=== PATIENT | male | born 1995 | race Hispanic/Latino ===

== ENCOUNTER 2017-10-09 19:03 | Emergency (ER) | payer OTHER, SELFPAY ==
[2017-10-09 19:05] VITALS: BP 160/76; PULSE 77; PULSE 87; RESP 18; TEMP 36.2; O2SAT 96; O2SAT 97; BMI 32.4
--- NOTE | 2017-10-09 19:28 | ED.VISSUMM ---
- ER Visit Summary Date of Service: 10/09/17 Chief Complaint: Ear pain History of Present Illness: The patient is a 22 M who presents with bilateral ear pain. The patient was seen on Tuesday to urgent care with ear pain but his tympanic membranes appear normal. He has been battling some seasonal allergies. No fever. Noted clear rhinorrhea and slight cough. Physical Examination: Afebrile vital signs stable Gen: Well-nourished well-developed Head: Normocephalic atraumatic Eyes: Perrl EOMI ENT: Bilateral turbinate edema with clear rhinorrhea. Bilateral tympanic membrane erythema and bulging right greater than left. No evidence of perforation. Moist mucous membranes Neck: Supple no lymphadenopathy no JVD nontender CVS: Regular rate rhythm no murmurs normal S1-S2 Respiratory: No distress clear to auscultation bilaterally chest nontender Abdomen: Soft nontender nondistended normal bowel sounds no masses Back: Nontender Extremity: Nontender no edema Skin: Normal color no rash Neuro: alert orientated ?3 CN II-XII intact normal strength sensation reflexes gait cerebellar Psych: Normal affect normal mood Emergency Department Course and Treatment: Patient has a penicillin allergy. Patient was placed on Cefdinir. Return if worsening follow-up as needed Impression: 1. Bilateral otitis media This note was generated with [employer] dictation software. It may contain incorrect words, spelling, and punctuation that were not noted in review of the chart prior to signing ED Disposition - Plan for ED Patient: Disposition: Home or Assisted Living Chief Complaint: Ear Problem Instructions: ED Otitis Media Acute Adult Prescriptions: Cefdinir [Omnicef] 600 mg PO DAILY 120 Days #10 ml Referrals: Harvinder Elizabeth MD [Primary Care Provider] - 3-5 Days if not improving
[2017-10-09 19:37] VITALS: BP 122/86; PULSE 79; RESP 18; O2SAT 97
== END 2017-10-09 19:43 | disposition home or self-care (01) ==
PROVIDERS: Emergency Provider Emergency Medicine; Family Provider Pediatrics; PCP Pediatrics
DX: H66.93 Otitis media, unspecified, bilateral (principal); J45.909 Unspecified asthma, uncomplicated
CPT/HCPCS: 99283

== ENCOUNTER 2018-04-21 19:29 | Emergency (ER) | payer OTHER, SELFPAY ==
[2018-04-21 19:30] VITALS: BP 125/73; PULSE 80; RESP 16; TEMP 36.4; O2SAT 97; BMI 32.3
--- NOTE | 2018-04-21 19:33 | EKG12_ITS ---
Test Reason : CP Blood Pressure : / mmHG Vent. Rate : 070 BPM Atrial Rate : 070 BPM P-R Int : 138 ms QRS Dur : 096 ms QT Int : 382 ms P-R-T Axes : 025 016 009 degrees QTc Int : 412 ms Normal sinus rhythm with sinus arrhythmia Normal ECG Confirmed by SHAWNEE BULL, NETTE ([id number]), science editor JACE CASTILLO ([id number] on 04/24/2018 12:29:15 PM Referred By: Confirmed By:NETTE MALLORY MD
--- NOTE | 2018-04-21 19:35 | RAD_ITS ---
STUDY: X-RAY CHEST REASON FOR EXAM: Male, 22 years old. Chest pain TECHNIQUE: Single AP portable view of the chest. # of Images: 1 COMPARISON: None. FINDINGS: The lungs are clear and expanded. There is no demonstrated pleural abnormality. Normal size heart. Normal mediastinum and pattie. Normal visualized pulmonary arteries. Normal visualized aortic arch and descending thoracic aorta. Normal visualized thoracic spine. Normal visualized ribs, clavicles, and shoulders. There is no demonstrated abnormality of the visualized soft tissue structures of the upper abdomen. RAD/Chest 1 View (Portable) IMPRESSION: Normal x-ray examination of the chest. Electronically Signed: Ernesto Pena DO at 19:53 EDT Tel , Service support ,
--- NOTE | 2018-04-21 19:41 | ED.RN ---
NO OLD EKGS IN MUSE.
[2018-04-21 20:18] LABS: Absolute Lymphocyte Count 2.58 X10^3/ul (0.83-4.51); Absolute Neutrophil Count 3.1 X10^3/uL (2.0-7.7); Basophil# 0.06 X10^3/uL; Eosinophil# 0.13 X10^3/uL; Eosinophils% 2.1 % (0-5); Hematocrit 46.3 % (40-54); Hemoglobin 15.7 g/dl (13.0-16.5); Lymphocyte # 2.58 X10^3/ul (4.0); Lymphocyte % 41.4 % (19-41); Mean Corp Hgb Conc 33.9 g/gl (32-36); Mean Corpuscular Hgb 29.5 pg (27.0-32.0); Mean Corpuscular Volume 86.9 fL (80-94); Monocyte# 0.36 X10^3/uL; Monocyte% 5.8 % (0-10); Neutrophil # 3.07 X10^3/uL (2.7-7.7); Neutrophil % 49.2 % (47-70); Platelet Count 266 K/mm3 (150-450); RBC Distribution Width CV 13.3 % (11.6-14.6); Red Blood Count 5.33 M/mm3 (4.6-6.2); White Blood Count 6.2 K/mm3 (4.4-11.0)
[2018-04-21 20:19] LABS: POSITIVE COUNT NO; POSITIVE DIFFERENTIAL NO; POSITIVE MORPHOLOGY NO
[2018-04-21 20:42] LABS: Anion Gap 7 (5-15); BUN 13 mg/dL (7-18); BUN/Creat Ratio 10.9 RATIO (10-20); Calcium,Total 8.9 mg/dL (8.5-10.1); Chloride 104 mmol/L (98-107); Creatinine, Serum 1.19 mg/dL (0.70-1.30); EST Glomerular Filtration Rate 82 mL/min (>60); Est Glom Filt Rate - Afr Amer 100 mL/min (>60); Estimated Creatinine Clearance 108.68 ml/min; Glucose 80 mg/dL (74-106); Sodium Level 139 mmol/L (136-145)
[2018-04-21 21:03] VITALS: RESP 16
[2018-04-21 21:07] VITALS: O2SAT 98
[2018-04-21 21:58] VITALS: BP 112/77; PULSE 68; RESP 16; O2SAT 98
[2018-04-21 22:11] LABS: D-Dimer Quantitative (DVT/PE) < 0.27 FEU/ug/m (0.27-0.49)
[2018-04-21 23:00] VITALS: RESP 16
--- NOTE | 2018-04-21 23:20 | ED.DEP ---
ED Disposition - Plan for ED Patient: Chief Complaint: Chest Pain Instructions: ED Chest Pain Atypical Unkn Cause Referrals: Havrinder Elizabeth MD [Primary Care Provider] -
[2018-04-21] MEDS: Ibuprofen 600 MG Tablet PO (23:30)
[2018-04-21 23:33] VITALS: BP 116/86; PULSE 74; RESP 16; O2SAT 96
--- NOTE | 2018-04-21 23:33 | ED.RN ---
REVIEWED D/C INSTRUCTIONS, FOLLOW UP CARE, AND S/S THAT WOULD WARRANT A RETURN TO THE ED WITH PT. PT VERBALIZED AN UNDERSTANDING AND DENIES FURTHER QUESTIONS FOR THIS RN. PT SKIN P/W/D, RESP EVEN AND UNLABORED, PT A&O X 3, NO DISTRESS NOTED. PT AMBULATED OUT OF ED, GAIT STEADY.
--- NOTE | 2018-04-22 00:34 | ED.VISSUMM ---
- ER Visit Summary Date of Service: 04/22/18 Chief Complaint: Chest pain History of Present Illness: The patient is a 22 M presenting with chest pain which started around 5 PM. He states it is sharp pain in his mid chest. It is 5 out of 10. It is not worsened or relieved by anything. He denies nausea, vomiting, diaphoresis, shortness of breath, lightheadedness. He has a family history of early heart disease. He is not a smoker. No PE/DVT risk factors. Physical Examination: Vitals are stable. Patient is afebrile. Alert no acute distress. HEENT exam is unremarkable. Neck is supple. Lungs are clear and equal bilaterally. Mid chest tenderness to palpation with no crepitus Heart is regular rate and rhythm. Abdomen is soft nontender nondistended. Extremities are unremarkable. Skin is warm and dry. No focal neurologic deficit. Remainder of exam is unremarkable. Emergency Department Course and Treatment: EKG is sinus rate of 70. CBC chemistries unremarkable. Troponin is negative. D-dimer negative. Chest x-ray shows no acute process. Patient is resting comfortably on reevaluation. He was given Motrin. Advised to follow-up with his primary care physician. Advised return ED if worsening complaints. Disposition: Discharge home Impression: Chest wall pain This note was generated with [employer] dictation software. It may contain incorrect words, spelling, and punctuation that were not noted in review of the chart prior to signing ED Disposition - Plan for ED Patient: Disposition: Home or Assisted Living Chief Complaint: Chest Pain Instructions: ED Chest Pain Atypical Unkn Cause Referrals: Harvinder Elizabeth MD [Primary Care Provider] -
--- NOTE | 2018-04-22 00:44 | ED.DCSUM_ITS ---
- ER Visit Summary Date of Service: 04/22/18 Chief Complaint: Chest pain History of Present Illness: The patient is a 22 M presenting with chest pain which started around 5 PM. He states it is sharp pain in his mid chest. It is 5 out of 10. It is not worsened or relieved by anything. He denies nausea, v omiting, diaphoresis, shortness of breath, lightheadedness. He has a family history of early heart disease. He is not a smoker. No PE/DVT risk factors. Physical Examination: Vitals are stable. Patient is afebrile. Alert no acute distress. HEENT exam is unremarkable. Neck is supple. Lungs are clear and equal bilaterally. Mid chest tenderness to palpation with no crepitus Heart is regular rate and rhythm. Abdomen is soft nontender nondistended. Extremities are unremarkable. Skin is warm and dry. No focal neurologic deficit. Remainder of exam is unremarkable. Emergency Department Course and Treatment: EKG is sinus rate of 70. CBC chemistries unremarkable. Troponin is negative. D-dimer negative. Chest x-ray shows no acute process. Patient is resting comfortably on reevaluation. He was given Motrin. Advised to follow-up with his primary care physician. Advised return ED if worsening complaints. Disposition: Discharge home Impression: Chest wall pain This note was generated with [employer] dictation software. It may contain incorrect words, spelling, and punctuation that were not noted in review of the chart prior to signing ED Disposition - Plan for ED Patient: Disposition: Home or Assisted Living Chief Complaint: Chest Pain Instructions: ED Chest Pain Atypical Unkn Cause Referrals: Harvinder Elizabeth MD [Primary Care Provider] -
== END 2018-04-21 23:34 | disposition home or self-care (01) ==
PROVIDERS: Emergency Provider Emergency Medicine; Family Provider Pediatrics; PCP Pediatrics
DX: R07.89 Other chest pain (principal)
CPT/HCPCS: 71045; 80048; 84484; 85025; 85379; 93005; 99285

== ENCOUNTER 2018-09-23 22:43 | Emergency (ER) | payer OTHER, SELFPAY ==
[2018-09-23 22:44] VITALS: BP 123/64; PULSE 124; RESP 20; TEMP 37.6; O2SAT 98; BMI 32.7
--- NOTE | 2018-09-23 23:22 | ED.VIS.GEN ---
History of Present Illness Chief Complaint: Cough Informant: Patient, Family Onset: Yesterday Context: Sudden Onset Timing: Continuous Quality: Viral-like symptoms Location: Respiratory Current Severity: Mild Maximum Severity: Moderate Worsened by: Coughing Relieved by: Nothing Associated Symptoms: Runny nose, slight production clear, wheezing Narrative: Patient is a 23-year-old male with asthma. He presents with viral-like symptoms started yesterday. He reports rhinorrhea, congestion and cough with minimal production of clear sputum. He has had shortness of breath. No documented fever. No headache. No ocular, visual auditory symptoms. There is no rash. He has vomited after coughing hard. Prior similar symptoms: No Recent Illness/Hospitalization: No - Past Medical History (1) Asthma Status: Acute Past Medical History - Allergies and Home Meds Allergies/Adverse Reactions: Allergies amoxicillin [Amoxicillin] Allergy (Verified 09/23/18 22:46) Other Primary Care Physician: Harvinder Elizabeth MD [Primary Care Provider] - Prior records reviewed: Yes Past Medical History: - - History of asthma Surgical History: no surgical history Lives: With Family Smoking Status: Never smoker Alcohol: None Review of Systems General: Denies: Chills, Fever, Sweats Eyes: Denies: Visual changes - bilaterally, Blurred Vision - bilaterally, Diplopia ENT: Reports: Rhinorrhea. Denies: Bilateral ear pain, Sore throat Cardiovascular: Reports: Palpitations Respiratory: Reports: Dyspnea, Cough, Sputum Gastrointestinal: Denies: Abdominal pain, Nausea, Vomiting, Diarrhea, Melena, Hematochezia Genitourinary: Denies: Dysuria, Hematuria, Frequency Musculoskeletal: Denies: Myalgias, Arthralgias, Back pain, Extremity Pain Skin: Denies: Rash, Wounds Neurological: Denies: Headache, Weakness, Numbness Physical Exam Vital Signs/Narrative: Vital Signs Temp Pulse Resp BP Pulse Ox 09/23/18 22:44 99.6 F H 124 H 20 H 123/64 H 98 Inital Vital Signs reviewed: Yes General: Well nourished, Well developed, No Acute Distress Head: Normocephalic, Atraumatic Eyes: Perrl, EOMI. Negative for: Pale conjunctiva, Scleral icterus ENT: Moist mucous membranes, TM's clear, Nasal congestion Neck: Supple, Nontender, No lymphadenopathy, No JVD, - - Neck is supple trachea is midline. There is no stridor. Cardiovascular: Regular rhythm, No murmurs, Normal S1, Normal S2, Tachycardia Respiratory: No distress, Chest nontender, Wheezing, Decreased Air Movement - There is increased extra phase with wheezing noted Skin: Normal color, No rash. Negative for: Cyanosis Neurological: Alert, Oriented x3, Cranial nerves II-XII grossly intact, Normal Strength, Normal Sensation Psychological: Normal affect, Normal Mood Diagnostic/Tx/Re-eval - Medical Decision Making Patient's history and physical is consistent with upper respiratory infection. The upper restaurant infection has exacerbated his asthma. Will treat with DuoNeb and albuterol. He also was given dose of systemic steroid. If there is no improvement will obtain x-ray otherwise radiology imaging is not indicated nor is any blood work at this time. Patient was reassessed at 2350. He has no longer wheezing. Once he receives his Decadron will discharge to home. ED Disposition - Plan for ED Patient: Disposition: Home or Assisted Living Diagnosis: Asthma with acute exacerbation, Viral upper respiratory tract infection with cough Instructions: ED Reactive Airway Disease, ED Upper Resp Infec No Abx Tx Referrals: Harvinder Elizabeth MD [Primary Care Provider] - 3-5 Days if not improving Additional Instructions: Administer 2 puffs of your inhaler every 2-4 hours while awake for the next 3 days then every 4-6 hours as needed.
[2018-09-23 23:30] VITALS: PULSE 136; RESP 18
[2018-09-23] MEDS: Albuterol 2.5 MG/3 ML VIAL.NEB. INHALATION (23:30)
[2018-09-23] MEDS: Ipratropium/Albuterol Sulfate 3 ML AMPUL.NEB INHALATION (23:30)
[2018-09-23 23:54] VITALS: O2SAT 97
[2018-09-23 23:56] VITALS: BP 126/76; PULSE 118; RESP 20; TEMP 37; O2SAT 98
[2018-09-23 23:59] VITALS: BP 111/74; PULSE 114; RESP 20; O2SAT 96
== END 2018-09-24 00:01 | disposition home or self-care (01) ==
PROVIDERS: Emergency Provider Emergency Medicine; Family Provider Pediatrics; PCP Pediatrics
DX: J45.901 Unspecified asthma with (acute) exacerbation (principal); J06.9 Acute upper respiratory infection, unspecified; R05 Cough; Z79.899 Other long term (current) drug therapy
CPT/HCPCS: 94640; 99282

== ENCOUNTER → 2018-09-29 11:35 | Outpatient (CLI) | payer OTHER, SELFPAY ==
[2018-09-23 22:44] VITALS: BMI 32.7
--- NOTE | 2018-09-29 11:39 | RAD_ITS ---
STUDY: X-RAY CHEST REASON FOR EXAM: Male, 23 years old. Asthma. Shortness of breath. Cough TECHNIQUE: Frontal and lateral views of the chest. COMPARISON: April 21, 2018. FINDINGS: The lungs are clear and expanded. There is no demonstrated pleural abnormality. Normal size heart. Normal mediastinum and pattie. Normal visualized pulmonary arteries. Normal visualized aortic arch and descending thoracic aorta. Normal visualized thoracic spine. Normal visualized ribs, clavicles, and shoulders. There is no demonstrated abnormality of the visualized soft tissue structures of the upper abdomen. RAD/Chest PA and Lateral IMPRESSION: Normal x-ray examination of the chest. Electronically Signed: Amish Robb MD at 12:00 EDT , Service support ,
== END ==
PROVIDERS: Family Provider Pediatrics; PCP Pediatrics; Referring Provider Pediatrics; Visit Provider Pediatrics
DX: J45.21 Mild intermittent asthma with (acute) exacerbation (principal)
CPT/HCPCS: 71046

== ENCOUNTER 2019-01-07 13:07 | Emergency (ER) | payer OTHER, SELFPAY ==
[2019-01-07 13:08] VITALS: BP 120/73; PULSE 60; RESP 16; TEMP 36.6; O2SAT 99; BMI 32.6
--- NOTE | 2019-01-07 13:39 | ED.VIS.GEN ---
History of Present Illness Chief Complaint: Ear Problem Informant: Patient Onset: Weeks Current Severity: Mild Narrative: Patient presents complaining of intermittent right ear pain for weeks he was seen by his outpatient providers recently started on an antibiotic whose name he cannot remember but believes it starts with a CEPH he is allergic to amoxicillin no fever some rhinorrhea no cough occasional pain to the left ear as well he is not prone to otitis no sore throat he has no other complaints he is currently on this antibiotic Past Medical History - Allergies and Home Meds Allergies/Adverse Reactions: Allergies amoxicillin [Amoxicillin] Allergy (Verified 01/07/19 13:10) Other Primary Care Physician: Harvinder Elizabeth MD [Primary Care Provider] - Past Medical History: - - He denies see above Surgical History: no surgical history Smoking Status: Never smoker Review of Systems General: Denies: Chills, Fever, Sweats Eyes: Denies: Visual changes - bilaterally, Diplopia ENT: Reports: Right ear pain, Rhinorrhea. Denies: Sore throat Cardiovascular: Denies: Chest pain, Palpitations Respiratory: Denies: Dyspnea, Cough, Dyspnea on exertion Gastrointestinal: Denies: Abdominal pain, Nausea, Vomiting, Diarrhea, Melena, Hematochezia Genitourinary: Denies: Dysuria, Hematuria, Frequency Musculoskeletal: Denies: Back pain, Extremity Pain Skin: Denies: Rash, Wounds Neurological: Denies: Headache, Weakness, Numbness Physical Exam Vital Signs/Narrative: Vital Signs Temp Pulse Resp BP Pulse Ox 01/07/19 13:08 97.8 F 60 16 120/73 99 General: Well nourished, Well developed, No Acute Distress Head: Normocephalic, Atraumatic Eyes: Perrl, EOMI ENT: Moist mucous membranes, Nasal congestion, - - Is minimal redness involving the right TM the left TM appears clear the nose is slightly congested throat neck otherwise unremarkable as is the rest of his exam Neck: Supple, Nontender Cardiovascular: Regular rate, Regular rhythm, No murmurs Respiratory: No distress, CTA bilaterally, Chest nontender Abdomen: Soft, Nontender, Nondistended, Normal bowel sounds Back: Nontender, Normal Inspection Extremities: Nontender, No edema Skin: Normal color, No rash Neurological: Alert, Oriented x3, Cranial nerves II-XII grossly intact, Normal Strength, Normal Sensation Psychological: Normal affect, Normal Mood Diagnostic/Tx/Re-eval - Medical Decision Making I explained all the above to the patient I explained that given he is currently on antibiotics and that the symptoms appear to be intermittent he should continue those antibiotics follow-up with his outpatient providers tomorrow for further management or any adjustments to his medical regimen he agrees with this plan Home stable Final impression Intermittent right ear pain possibly related to otitis media ED Disposition - Plan for ED Patient: Diagnosis: Ear ache Instructions: OTITIS MEDIA, Abx Tx (Adult) Referrals: Harvinder Elizabeth MD [Primary Care Provider] -
[2019-01-07 13:52] VITALS: TEMP 36.6
[2019-01-07] MEDS: Naproxen 500 MG Tablet PO (13:52)
== END 2019-01-07 13:54 | disposition home or self-care (01) ==
PROVIDERS: Emergency Provider Emergency Medicine; Family Provider Pediatrics; PCP Pediatrics
DX: H92.01 Otalgia, right ear (principal); J34.89 Other specified disorders of nose and nasal sinuses; R09.81 Nasal congestion
CPT/HCPCS: 99282

== ENCOUNTER → 2022-08-05 | Outpatient (CLI) | payer OTHER, SELFPAY ==
[2022-08-05 13:28] LABS: Anion Gap 10 (5-15); BUN 19 mg/dL (7-18); BUN/Creat Ratio 17.4 RATIO (10-20); Calcium,Total 9.2 mg/dL (8.5-10.1); Chloride 105 mmol/L (98-107); Cholesterol 213 mg/dL (200); Creatinine, Serum 1.09 mg/dL (0.70-1.30); EST Glomerular Filtration Rate 88 mL/min (>60); Est Glom Filt Rate - Afr Amer 106 mL/min (>60); Glucose 96 mg/dL (74-106); High Density Lipoprotein 38 mg/dL; Potassium 4.4 mmol/L (3.5-5.1); Sodium Level 140 mmol/L (136-145); Triglycerides 202 mg/dL; Very Low Density Lipoprotein 40 mg/dL (5-40)
== END | disposition home or self-care (01) ==
LOC: MFPLAB 10:02
PROVIDERS: PCP Family Medicine; Referring Provider Family Medicine; Visit Provider Family Medicine
DX: Z00.00 Encounter for general adult medical examination without abnormal findings (principal)
CPT/HCPCS: 36415; 80048; 80061

== ENCOUNTER → 2023-06-21 | Outpatient (CLI) | payer OTHER, SELFPAY ==
[2023-06-21 10:33] LABS: Bacteria 0 SEEN /hpf (None Seen); White Blood Cells 0 SEEN /hpf (0-5)
[2023-06-21 10:41] LABS: Color, Urine Yellow (Yellow); Glucose, Dipstick Normal (Normal); Ketone-Dipstick Negative (Negative); Leukocyte Esterase-Dipstick Negative /ul (Negative); Nitrite-Dipstick Negative (Negative); Occult Blood-Urine 50 /ul (Negative); Protein-Dipstick 15 mg/dl (Negative); Specific Gravity, Urine 1.015 (1.002-1.030); Urine Bilirubin Dipstick Negative (Negative); Urine Clarity Clear (Clear); Urine Urobilinogen Normal (Normal); Urine pH 6.5 (5.0 - 8.0)
[2023-06-21 10:51] LABS: Mucous, Urine 2+ /hpf (<or=2+); Red Blood Cells-Urine 0-5 SEEN /hpf (0-5); Squamous Epithelial Cells - UA 0-5 SEEN /hpf (0-5)
== END | disposition home or self-care (01) ==
PROVIDERS: PCP Family Medicine; Referring Provider Physician Assistant; Visit Provider Physician Assistant
DX: R31.9 Hematuria, unspecified (principal)
CPT/HCPCS: 81001; 87086; 87088